=== PATIENT | female | born 1980 | race American Indian/Alaskan Native ===

== ENCOUNTER 2018-04-15 18:59 | Emergency (ER) | payer SELFPAY ==
[2018-04-15 19:02] VITALS: BMI 25.0
[2018-04-15 19:31] VITALS: RESP 18; TEMP 99.5
--- NOTE | 2018-04-15 19:37 | C.PDOC ---
History Of Present Illness 37 year old female patient with PSHx of appendectomy and cholecystectomy presents to the ER with mild suprapubic pain. Patient states that on 04/10 she started her period, but it has not stopped since. Patient claims she has heavy bleeding and suprapubic pain with lower back pain that is different than her regular period cramps. Patient takes control pills and denies , fever, and dysuria. Patient also states that she had a colposcopy 3 weeks ago. Patient has had 3 pregnancies, 2 kids, and 1 . Chief Complaint (Nursing): Female Genitourinary History Per: Patient History/Exam Limitations: no limitations Onset/Duration Of Symptoms: Days Current Symptoms Are (Timing): Still Present Severity: Mild Quality Of Discomfort: Other ("feels like pains") Associated Symptoms: Back Pain (low). denies: Fever, Other (dysuria) Recent travel outside of the [place]: No Additional History Per: Patient Abnormal Vaginal Bleeding: Yes Last Menstral Period: 04/10/18 Past Medical History Reviewed: Historical Data, Nursing Documentation, Vital Signs Vital Signs: Last Vital Signs Temp 99.5 F 04/15/18 19:25 Pulse 72 04/15/18 21:47 Resp 18 04/15/18 21:47 BP 134/70 04/15/18 21:47 Pulse Ox 98 04/15/18 21:47 - Medical History PMH: No Chronic Diseases Surgical History: Appendectomy, Cholecystectomy Other Surgeries: colposcopy Family History: States: No Known Family Hx - Social History Hx Alcohol Use: Yes Hx Substance Use: No - Immunization History Hx Tetanus Toxoid Vaccination: Yes Hx Influenza Vaccination: Yes Hx Pneumococcal Vaccination: No Review Of Systems Except As Marked, All Systems Reviewed And Found Negative. Constitutional: Negative for: Fever Genitourinary: Positive for: Vaginal Bleeding, Pelvic Pain (suprapubic). Negative for: Dysuria Musculoskeletal: Positive for: Back Pain (low) Physical Exam - Physical Exam Appears: Non-toxic, No Acute Distress Skin: Normal Color, Warm, Dry Head: Atraumatic, Normacephalic Eye(s): bilateral: Normal Inspection Ear(s): Bilateral: Normal Nose: Normal Oral Mucosa: Moist Tongue: Normal Appearing Lips: Normal Appearing Throat: Normal Neck: Normal ROM, Supple Lymphatic: Normal Exam Chest: Symmetrical, No Deformity Cardiovascular: Rhythm Regular Respiratory: Normal Breath Sounds, No Rales, No Rhonchi, No Stridor, No Wheezing Gastrointestinal/Abdominal: Soft, Tenderness (mild suprapubic), No Guarding, No Rebound Pelvic: Normal External Exam, Normal Bimanual Exam, No Vaginal Bleeding (no active bleeding. 5 cc clotted blood in the vault), No Cervical Motion Tenderness , No Adnexal Tenderness, No Mass Extremity: Normal ROM (x4) Neurological/Psych: Oriented x3, Normal Speech Gait: Steady ED Course And Treatment - Laboratory Results Result Diagrams: 04/15/18 20:05 04/15/18 20:05 O2 Sat by Pulse Oximetry: 100 (RA) Pulse Ox Interpretation: Normal Medical Decision Making Medical Decision Making: Impression: Abnormal vaginal bleeding, rule out ectopic, PID, and UTI. 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 I have reviewed the chart and agree that the record accurately reflects my personal performance of the history, physical exam, medical decision making, and the department course for this patient. I have also personally directed, reviewed, and agree with the discharge instructions and disposition.
[2018-04-15 20:23] LABS: BASO % 0.5 % (0.0-2.0); EOS # 0.1 K/uL (0.0-0.7); HEMOGLOBIN 11.5 g/dL (11.0-16.0); MEAN CORPUSCULAR HEMOGLOBIN 29.2 pg (27.0-31.0); MEAN CORPUSCULAR HGB CONC 33.2 g/dL (33.0-37.0); MEAN PLATELET VOLUME 8.2 fL (7.2-11.7); MONO # 0.6 K/uL (0.0-0.8); NEUT # 3.4 K/uL (1.8-7.0); NEUT % 54.5 % (50.0-75.0); RBC 3.93 Mil/uL (3.80-5.20); RED CELL DISTRIBUTION WIDTH 13.6 % (11.5-14.5); WHITE BLOOD COUNT 6.2 K/uL (4.8-10.8)
[2018-04-15 20:27] LABS: ALB/GLOB RATIO 1.3 (1.0-2.1); ALBUMIN 4.6 g/dL (3.5-5.0); ALT/SGPT 32 U/L (9-52); AST/SGOT 26 U/L (14-36); BLOOD UREA NITROGEN 14 mg/dL (7-17); CALCIUM 9.6 mg/dl (8.6-10.4); GFR AFRICAN-AMERICAN > 60; GFR NON-AFRICAN AMERICAN > 60
[2018-04-15 20:30] LABS: HCG,QUALITATIVE URINE NEGATIVE (NEGATIVE)
[2018-04-15 20:33] LABS: SQUAMOUS EPITHIAL 2 /hpf (0-5); URINE BILIRUBIN NEGATIVE (NEGATIVE); URINE BLOOD 3+ (NEGATIVE); URINE CLARITY Hazy (Clear); URINE COLOR Yellow (YELLOW); URINE GLUCOSE (UA) NORMAL (Normal); URINE LEUKOCYTE ESTERASE TRACE Leu/uL (Negative); URINE PROTEIN 1+ mg/dL (NEGATIVE); URINE UROBILINOGEN NORMAL mg/dL (0.2-1.0)
[2018-04-15 21:48] VITALS: BP 134/70; PULSE 72
[2018-04-16 04:28] VITALS: O2SAT 100
== END 2018-04-15 21:48 | disposition home or self-care (01) ==
LOC: C.ER 18:59
DX: N92.0 Excessive and frequent menstruation with regular cycle (principal)